=== PATIENT | female | born 1995 | race Two or more races ===

== ENCOUNTER 2017-01-26 09:59 | Emergency (ER) | payer SELFPAY ==
[2017-01-26 10:06] VITALS: BP 103/82; PULSE 72; TEMP 98.2; BMI 17.7
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
== END 2017-01-26 12:41 | disposition home or self-care (01) ==
LOC: JERFT 09:59
DX: S60.211A Contusion of right wrist, initial encounter (principal); W22.8XXA Striking against or struck by other objects, initial encounter; Y93.9 Activity, unspecified; Y92.9 Unspecified place or not applicable
CPT/HCPCS: 73110-TC-RT; 73130-TC-RT; 84703; 99281-25